=== PATIENT | male | born 1950 | race Caucasian/White ===

== ENCOUNTER 2022-01-13 09:03 | Emergency (ER) | payer MEDICARE, OTHER ==
[~2022-01-13] VITALS: Ht 182.9 cm; Wt 88.5 kg
[~2022-01-13 09:03] MED LIST: CITALOPRAM HBR20 MG PO; LOVASTATIN40 MG PO
--- NOTE | 2022-01-13 22:57 | EKG ---
[facility] [address] [facility] [place], [place] [address] Signed Sinus bradycardia Low voltage QRS No previous ECGs available Confirmed by JEREMÍAS VINES MD ([id number] on 01/13/2022 10:57:36 PM Electronically Signed By: JEREMÍAS VINES MD 01/13/22 2257 PATIENT NAME: EDWIN MURRAY [facility] DATE OF : 48 PHYSICIAN: JEREMÍAS VINES MD REPORT #: [id number] REPORT IS CONFIDENTIAL AND NOT TO BE RELEASED WITHOUT AUTHORIZATION
== END 2022-01-13 13:10 | disposition home or self-care (01) ==
LOC: ED 09:03
DX: R10.33 Periumbilical pain (principal); Z79.899 Other long term (current) drug therapy
CPT/HCPCS: 36415; 71275; 74175; 80053; 83690; 85025; 93005; 93010; 99284-25; Q9967